=== PATIENT | female | born 1975 | race Caucasian/White ===

== ENCOUNTER 2017-08-18 22:20 | Emergency (ER) | payer BC ==
[2017-08-18] MEDS ORDERED: Pepcid 20 MG VIAL IV ONE ×2 (22:35→22:47)
[2017-08-18] MEDS ORDERED: BENADRYL 50 MG/ML IV ONE (22:35)
[2017-08-18] MEDS ORDERED: DECADRON 10MG INJ. IV ONE (22:37)
--- NOTE | 2017-08-18 22:43 | ERPHSYRPT ---
- History of Present Illness Time Seen by Provider: 08/18/17 22:33 Source: patient Exam Limitations: clinical condition Physician History: PATIENT STATES AFTER EATING CANDY DEVELOPED ITCHING IN BOTH EARS, AND HOARSNESS , FEELS LIKE HER THROAT IS SWOLLEN. DENIES GENERALIZED ITCHING, HIVES OR RASH, DIFFICULTY SWALLOWING OR BREATHING Timing/Duration: today Severity: mild Modifying Factors: Improves With: other (ONSET AFTER EATING CANDY) Associated Symptoms: other (ITCHING IN EARS, HOARSNESS) Allergies/Adverse Reactions: egg Allergy (Verified 08/18/17 22:44) levofloxacin [From Levaquin] Allergy (Verified 08/18/17 22:44) Home Medications: Esomeprazole Magnesium [Nexium] 20 mg PO DAILY 08/18/17 [History] - Review of Systems Constitutional: No Fever, No Chills Eyes: No Symptoms Ears, Nose, & Throat: Other (HOARSENESS) Respiratory: No Symptoms, No Cough, No Dyspnea Cardiac: No Symptoms, No Chest Pain, No Edema, No Syncope Abdominal/Gastrointestinal: No Abdominal Pain, No Nausea, No Vomiting, No Diarrhea Genitourinary Symptoms: No Dysuria Musculoskeletal: No Back Pain, No Neck Pain Skin: Pruritis, No Rash Neurological: No Dizziness, No Focal Weakness, No Sensory Changes Psychological: No Symptoms Endocrine: No Symptoms All Other Systems: Reviewed and Negative - Nursing Vital Signs Nursing Vital Signs: Initial Vital Signs Temperature 98.0 F 08/18/17 22:35 Pulse Rate 113 H 08/18/17 22:35 Respiratory Rate 18 08/18/17 22:35 Blood Pressure 128/90 08/18/17 22:35 O2 Sat by Pulse Oximetry 100 08/18/17 22:35 Pain Scale Pain Intensity 0 - Physical Exam General Appearance: no apparent distress, alert Eye Exam: PERRL/EOMI, eyes nml inspection Ears, Nose, Throat Exam: TMs normal, moist mucous membranes, other (NO STRIDOR, THERE IS MINIMLA ANGIOEDEMA OF UVULA TIP, AND RIGHT LATERAL SOFT PALATE, AIRWAY PATENT) Neck Exam: normal inspection, non-tender, supple, full range of motion Respiratory Exam: normal breath sounds, lungs clear, other (NO WHEEZES OR RHONCHI), No respiratory distress Cardiovascular Exam: regular rate/rhythm, normal heart sounds, normal peripheral pulses Gastrointestinal/Abdomen Exam: soft, normal bowel sounds, No tenderness, No mass Back Exam: normal inspection, normal range of motion, No CVA tenderness, No vertebral tenderness Extremity Exam: normal inspection, normal range of motion, pelvis stable Neurologic Exam: alert, oriented x 3, cooperative, normal mood/affect, nml cerebellar function, nml station & gait, sensation nml, No motor deficits Skin Exam: normal color, warm, dry, No rash Lymphatic Exam: No adenopathy SpO2 Interpretation: normal SpO2: 98 Ordered Tests: Medication Summary Generic Name Dose Route Start Last Admin Trade Name Freq PRN Reason Stop Dose Admin Sodium Chloride 1,000 mls @ 200 mls/hr 08/18/17 22:45 08/18/17 22:49 Sodium Chloride 0.9% 1000 Ml IV 09/17/17 22:44 200 mls/hr .Q5H JS Administration Discontinued Medications Generic Name Dose Route Start Last Admin Trade Name Freq PRN Reason Stop Dose Admin Dexamethasone Sodium Phosphate 20 mg 08/18/17 22:37 08/18/17 22:55 Decadron 10mg Inj. IV 08/18/17 22:38 20 mg STAT ONE Administration Dexamethasone Sodium Phosphate Confirm 08/18/17 22:47 Decadron 10mg Inj. Administered 08/18/17 22:48 Dose 20 mg .ROUTE .STK-MED ONE Diphenhydramine HCl 50 mg 08/18/17 22:35 08/18/17 22:51 Benadryl 50 Mg/Ml IV 08/18/17 22:36 50 mg STAT ONE Administration Diphenhydramine HCl Confirm 08/18/17 22:47 Benadryl 50 Mg/Ml Administered 08/18/17 22:48 Dose 50 mg .ROUTE .STK-MED ONE Famotidine 20 mg 08/18/17 22:35 08/18/17 22:58 Pepcid 20 Mg Vial IV 08/18/17 22:36 20 mg STAT ONE Administration Famotidine Confirm 08/18/17 22:47 Pepcid 20 Mg Vial Administered 08/18/17 22:48 Dose 20 mg IV .STK-MED ONE - Progress Progress: improved Progress Note: 08/18/17 22:43 ADMINISTERED IV NORMAL SALINE 200ML/HR, DECADRON 20MG, BENADRYL 50MG, PEPCID 20MG IV. 08/18/17 23:44 ITCHING IMPROVED Counseled pt/family regarding: diagnosis, need for follow-up - Departure Time of Disposition: 23:45 Departure Disposition: Home Clinical Impression: ALLERGIC REACTION Condition: Stable Critical Care Time: No Referrals: JOVAN JOSEPH [Primary Care Provider] - Additional Instructions: DECADRON 4MG EVERY 8 HOURS FOR 3 DAYS, OVER THE COUNTER BENADRYL 50MG EVERY 4 HOURS FOR ITCHING. CONSULT YOUR PRIMARY CARE PROVIDER FOR EVALUATION, REFERRAL TO [facility] FOR ALLERGY TESTING. RETURN TO EMERGENCY FOR PERSISTENT ITCHING OR RECURRENT HOARSENESS. Prescriptions: Dexamethasone 4 mg [Decadron 4 MG] 4 mg PO TID #9 tablet
[2017-08-18] MEDS ORDERED: Sodium Chloride 0.9% 1000 ML 1,000 ML IV SCH (22:45)
[2017-08-18] MEDS ORDERED: Sodium Chloride 0.9% 1000 ML 1,000 ML ONE (22:47)
[2017-08-18] MEDS ORDERED: DECADRON 10MG INJ. ONE (22:47)
[2017-08-18] MEDS ORDERED: BENADRYL 50 MG/ML ONE (22:47)
[2017-08-18 23:45] VITALS: O2SAT 98
[2017-08-18 23:49] VITALS: BP 143/79; PULSE 82
== END 2017-08-18 23:52 | disposition home or self-care (01) ==
LOC: ED 22:20
DX: T78.40XA Allergy, unspecified, initial encounter (principal); R49.0 Dysphonia
CPT/HCPCS: 96360; 96374; 96375; 99284; J1100; J1200